=== PATIENT | male | born 1965 | race Caucasian/White ===

== ENCOUNTER 2016-11-29 10:22 | Emergency (ER) | payer OTHER ==
[~2016-11-29] VITALS: Wt 95.0 kg
[2016-11-29] MEDS ORDERED: SOD CHLORIDE 0.9% 500 ML IV STA (10:32)
[2016-11-29] MEDS ORDERED: ONDANSETRON 4 MG INJ IV STA (10:32)
[2016-11-29] MEDS ORDERED: KETOROLAC 30 MG INJ IV STA (10:32)
[2016-11-29 11:05] LABS: ADD SCAN DIFF NO
[2016-11-29 11:10] LABS: BASOPHIL # 0.1 10^3/ul (0.0-0.1); BASOPHILS % 0.4 % (0.0-2.0); EOSINOPHILS % 0.2 % (0.0-7.0); HEMATOCRIT 44.4 % (42.0-52.0); HEMOGLOBIN 14.8 g/dl (14.0-18.0); LYMPHOCYTES # 1.9 10^3/ul (0.8-2.9); MEAN CORPUSCULAR HGB CONC 33.3 g/dl (32.0-37.0); MEAN CORPUSCULAR VOLUME 92.9 fl (82.0-101.0); MEAN PLATELET VOLUME 9.7 fl (7.4-10.4); MONOCYTE # 0.6 10^3/ul (0.3-0.9); NEUTROPHIL # 9.7 10^3/ul (1.6-7.5); PLATELET COUNT 273 10^3/UL (140-415); RED BLOOD COUNT 4.78 10^6/ul (4.70-6.10); WHITE BLOOD COUNT 12.3 10^3/ul (4.8-10.8)
[2016-11-29 11:18] LABS: ALBUMIN 4.1 g/dl (3.3-4.9)
[2016-11-29 11:19] LABS: POTASSIUM 3.8 mmol/L (3.5-5.1)
[2016-11-29 11:21] LABS: ALBUMIN/GLOBULIN RATIO 1.24; BILIRUBIN,INDIRECT 0.3 mg/dl (0-1.1); BILIRUBIN,TOTAL 0.3 mg/dl (0.2-1.3); CREATININE 0.86 mg/dl (0.61-1.24); TOTAL PROTEIN 7.4 g/dl (6.1-8.1)
[2016-11-29 11:22] LABS: CALCIUM 9.5 mg/dl (8.4-10.2)
--- NOTE | 2016-11-29 11:53 | RADRPT ---
PROCEDURE: CT Abdomen and Pelvis without contrast. CLINICAL INDICATION: Abdominal pain. Flank pain. TECHNIQUE: CT scan of the abdomen and pelvis without contrast was performed on a multi-slice CT sc [facility] without intravenous contrast. Coronal and sagittal reformatted images were obtained from the axial source images. Images were reviewed on a high-resolution PACS workstation. One or more of the following does reduction techniques were used: Automated exposure control; adjustment of the mA an d/or kV according to patient size; use of the aorta of reconstruction technique. The total exam CTD I equals 19.53 mGy and the total exam DLP equals 1162.99 mGy-cm. COMPARISON: None available. FINDINGS: The lung bases are clear. Heart size is normal, and there is no evidence of pericardial thickening or effusion. There is diffuse decreased attenuation of the hepatic parenchyma consistent with fatty infiltration. The liver, spleen, and pancreas are otherwise normal given the limitations of a noncontrast CT exa mination. The gallbladder is normal. The adrenal glands are normal. The left kidney is without calcification or hydronephrosis. There i s mild right hydronephrosis and right. Renal and perinephric inflammatory change. There is a 3 mm calcification in the region of the right ureterovesicular junction, however appears somewhat central ly within the bladder and may have already passed.. No other renal calculi or ureteral calculi iden tified. The aorta is of normal caliber. There is no retroperitoneal lymph node enlargment. There is no evidence of large or small bowel obstruction. There are a few scattered colonic diverti cula. There is no CT evidence of diverticulitis. Incidental note is made of a cecal diverticulum i s well. A normal appendix is identified. No free fluid or fluid collections are identified. No i nflammatory changes are seen. There is a tiny periumbilical hernia containing only fat Prostate is mild to moderately enlarged. No enlarged pelvic sidewall lymph nodes are seen. Apart fr om stone reported above, the bladder is somewhat decompressed. The bladder is otherwise within norm al limits. No free fluid is identified. There are small right and small to moderate left inguinal hernias containing only fat. There is mild to moderate degenerative change at the lumbosacral junction and mild degenerative acevedo ge throughout the remainder of the lumbar spine.. IMPRESSION: 1. 3 mm calcification in the region of the right ureteral vesicular junction causing mild right hyd roureteronephrosis and associated perinephric and periureteral changes. The stone appears somewhat central within the bladder and may have already passed. Recommend clinical correlation and follow-u p as clinically indicated. 2. Fatty infiltration of the liver. 3. Diverticulosis without evidence of diverticulitis. 4. Tiny periumbilical, small right common small to moderate left inguinal hernias containing only f at. 5. Prostatomegaly. RPTAT: KK .Christopher Ramirez MD, MD Date Time Electronically viewed and signed by .Christopher Ramirez MD, MD on 11/29/2016 11:53 .B/
[2016-11-29] MEDS ORDERED: IBUP-1542 PO (12:09)
--- NOTE | 2016-11-29 12:11 | ERD ---
ER Documentation Chief Complaint Date/Time DATE: 11/29/16 TIME: 12:10 Chief Complaint r side flank and lower abd pain radiating to right testicle. n/v. HPI 51-year-old male presents the emergency department with the acute onset of a right flank pain radiating to his groin. Patient reports the pain is severe, colicky but associated with no fevers or chills. He had nausea but no vomiting. Patient reported no diarrhea or hematuria. Patient has never had similar type pain. ROS All systems reviewed and are negative except as per history of present illness. Medications Home Meds Active Scripts Ibuprofen* (Motrin*) 600 Mg Tab, 600 MG PO Q6, #30 TAB Prov:NETTE BEGUM 11/29/16 Allergies Allergies: Coded Allergies: No Known Allergy (Unverified , 11/29/16) FmHx Noncontributory for chief complaint Physical Exam Vitals Vital Signs Date Time Temp Pulse Resp B/P Pulse Ox O2 Delivery O2 Flow Rate FiO2 11/29/16 10:26 98.9 70 20 160/85 99 Physical Exam GENERAL: The patient is well developed and appropriate for usual state of health in no apparent distress HEENT: Pupils equal, round, and reactive to light. EOMI. There is no scleral icterus. NECK: C-spine is soft and supple, there is no meningismus. There is no cervical lymphadenopathy. LUNGS: Clear to auscultation bilaterally. There are no rales, wheezes or rhonchi. HEART: Regular rate and rhythm, no murmurs, clicks, rubs or gallops. ABDOMEN: Soft, non-tender, non-distended. There are bowel sounds in all four quadrants. No rebound or guarding. EXTREMITIES: There is no peripheral cyanosis or edema. No focal swelling or erythema. NEURO: The patient moves all four extremities with 5/5 strength. Cranial nerves II - XII are intact. Normal gait. Alert and oriented SKIN: There is no apparent rash or petechiae. HEME/LYMPHATIC: There is no evidence of excessive bruising or lymphedema. PSYCHIATRIC: The patient does not appear anxious or depressed. Result Diagram: 11/29/16 1037 11/29/16 1037 Results 24 hrs Laboratory Tests Test 11/29/16 10:37 White Blood Count 12.310^3/ul Red Blood Count 4.7810^6/ul Hemoglobin 14.8g/dl Hematocrit 44.4% Mean Corpuscular Volume 92.9fl Mean Corpuscular Hemoglobin 31.0pg Mean Corpuscular Hemoglobin Concent 33.3g/dl Red Cell Distribution Width 13.0% Platelet Count 53934^3/UL Mean Platelet Volume 9.7fl Neutrophils % 79.0% Lymphocytes % 15.0% Monocytes % 5.0% Eosinophils % 0.2% Basophils % 0.4% Nucleated Red Blood Cells % 0.0/100WBC Neutrophils # 9.710^3/ul Lymphocytes # 1.910^3/ul Monocytes # 0.610^3/ul Eosinophils # 0.010^3/ul Basophils # 0.110^3/ul Nucleated Red Blood Cells # 0.010^3/ul Sodium Level 140mmol/L Potassium Level 3.8mmol/L Chloride Level 105mmol/L Carbon Dioxide Level 24mmol/L Anion Gap 15 Blood Urea Nitrogen 19mg/dl Creatinine 0.86mg/dl Glucose Level 205mg/dl Calcium Level 9.5mg/dl Total Bilirubin 0.3mg/dl Direct Bilirubin 0.00mg/dl Indirect Bilirubin 0.3mg/dl Aspartate Amino Transf (AST/SGOT) 63IU/L Alanine Aminotransferase (ALT/SGPT) 92IU/L Alkaline Phosphatase 71IU/L Total Protein 7.4g/dl Albumin 4.1g/dl Globulin 3.30g/dl Albumin/Globulin Ratio 1.24 Lipase 95U/L Current Medications Medications (Trade) Dose Ordered Sig/Bita Route PRN Reason Start Time Stop Time Status Last Admin Dose Admin Sodium Chloride (NS) 500 ml @ 500 mls/hr Q1H STAT IV 11/29/16 10:32 11/29/16 11:31 DC 11/29/16 10:46 Ondansetron HCl (Zofran Inj) 4 mg ONCE STAT IV 11/29/16 10:32 11/29/16 10:33 DC 11/29/16 10:45 Ketorolac Tromethamine (Toradol) 30 mg ONCE STAT IV 11/29/16 10:32 11/29/16 10:33 DC 11/29/16 10:46 Procedures/MDM Patient was taken to a room, seen and evaluated. Comfort measures were initiated. Diagnostic tests were ordered and reviewed. 3 LEAD RHYTHM STRIP: Normal sinus rhythm without ectopy RADIOLOGY: reviewed with the radiologist REEVALUATION: Patient was reevaluated and appeared to be pain-free at approximately 12 noon. Abdomen was benign with no signs of appendicitis or other high-risk concerns. MEDICAL DECISION MAKING: Patient presents with abdominal pain of uncertain etiology. Differential diagnosis considered includes appendicitis, diverticulitis, cholecystitis and other intra-abdominal medical and surgical concerns. I have reviewed the patients lab studies and imaging as well as multiple examinations of the abdomen. Patient's evaluation shows evidence of a small kidney stone with resolution of discomfort. Patient shows no evidence of secondary infection or renal insufficiency. Overall, patient appears to be clinically well and appropriate for outpatient care. Departure Diagnosis: Primary Impression: Flank pain Condition: Stable Patient Instructions: Kidney Stone W/ Colic Referrals: PATRICIA MAY (PCP) ANN MARIE MALAVE MD Additional Instructions: See your doctor for follow-up as discussed. Take a copy of your test results, if appropriate, to this follow-up visit. See your doctor or return here if your symptoms do not improve as expected. At any time, please return to the emergency department for any change or worsening in her symptoms. NETTE BEGUM Nov 29, 2016 12:11
[2016-11-29 12:24] VITALS: BP 120/80; PULSE 64; RESP 20; TEMP 98.3
== END 2016-11-29 12:25 | disposition home or self-care (01) ==
LOC: E/R 10:22
DX: R10.30 Lower abdominal pain, unspecified (principal); R11.0 Nausea; R40.2142 Coma scale, eyes open, spontaneous, at arrival to emergency department; R40.2252 Coma scale, best verbal response, oriented, at arrival to emergency department; R40.2362 Coma scale, best motor response, obeys commands, at arrival to emergency department
CPT/HCPCS: 74176; 80053; 83690; 85025; J1885; J2405; J7040; 36415; 96374; 96375